=== PATIENT | female | born 1965 | race Caucasian/White ===

== ENCOUNTER 2018-09-04 06:24 | Day surgery (SDC) | payer BC ==
[~2018-09-04] VITALS: Ht 167.6 cm; Wt 59.7 kg
[2018-09-04] VITALS (17 sets, daily range): BP systolic 115–142; BP diastolic 58–67; PULSE 53–91; RESP 13–36; Ht 167.6 cm; Wt 59.7 kg
[~2018-09-04 06:24] MED LIST: CEFAZOLIN 2 GM/50 ML (PMX) 50 ML IVPB SCH; SOD CHLORIDE 0.9% 1,000 ML IV ONE
[2018-09-04] MEDS ORDERED: CEFAZOLIN 1 GM INJ ONE (09:12)
[2018-09-04] MEDS ORDERED: FENTAnyl 50 MCG/ML VIAL ONE (09:12)
[2018-09-04] MEDS ORDERED: LIDOCAINE 2% (SDV) 5 ML INJ ONE (09:12)
[2018-09-04] MEDS ORDERED: PROPOFOL 20 ML ONE (09:12)
[2018-09-04] MEDS ORDERED: MIDAZOLAM 1 MG/ML 2 ML INJ ONE (09:27)
--- NOTE | 2018-09-04 09:31 | PREAC ---
Date/Time of Note Date/Time of Note DATE: 09/04/18 TIME: 09:30 Anesthesia Eval and Record Evaluation Time Pre-Procedure Interview DATE: 09/04/18 TIME: 09:30 Age 53 Sex female NPO: 8 hrs Preoperative diagnosis left breast cancer Planned procedure left needle localized partial mastectomy Past Medical History Past Medical History: None Surgery & Anesthesia Issues No known issue (never had anesthesia) Meds Anticoagulation: No Beta Colleen within 24 hr: No Reason Beta Colleen not given: Pt. not on B-Colleen No Active Prescriptions or Reported Meds Current Medications Cefazolin Sodium/ Dextrose 50 ml @ 100 mls/hr PRE-OP IVPB ; Start 09/04/18 at 06:00; Stop 09/04/18 at 15:00 Sodium Chloride 1,000 ml @ 75 mls/hr [id number] ONCE IV ; Start 09/04/18 at 06:00; Stop 09/04/18 at 19:19 Meds reviewed: Yes Allergies Coded Allergies: No Known Allergy (Unverified , 09/04/18) Allergies Reviewed: Yes Labs/Studies Labs Reviewed: Reviewed by anesthesiologist test: Negative Studies: ECG Pre-procedure Exam Airway: Adequate mouth opening, Adequate thyromental dist Mallampati: Mallampati II Teeth: Normal Lung: Normal Heart: Normal ASA Physical Status ASA physical status: 2 Emergency: None Planned Anesthetic General/MAC: LMA Planned Pain Management Parenteral pain med, Local by surgeon Pre-operative Attestations Prior to commencing anesthesia and surgery, the patient was re-evaluated, there was verification of: *The patient's identity *The results of appropriate recent lab work and preoperative vital signs *The above evaluation not changing prior to induction *Anesthetic plan, risk benefits, alternative and complications discussed with patient/family; questions answered; patient/family understands, accepts and wishes to proceed. JANE STOCK Sep 04, 2018 09:31
[2018-09-04] MEDS ORDERED: MEPERIDINE 25 MG INJ IV PRN (10:00)
[2018-09-04] MEDS ORDERED: OXYCODONE/ACETAMINOPHEN (5/325) TAB PO PRN ×2 (10:00)
[2018-09-04] MEDS ORDERED: HYDROmorphONE 1 MG/5 ML IV SYRINGE IV PRN ×2 (10:00)
[2018-09-04] MEDS ORDERED: ONDANSETRON 4 MG INJ IV PRN (10:00)
[2018-09-04] MEDS ORDERED: ISOSULFAN BLUE 1% 5 ML INJ SC ONE (10:07)
[2018-09-04] MEDS ORDERED: FAMOTIDINE 20 MG INJ ONE (11:11)
[2018-09-04] MEDS ORDERED: ONDANSETRON 4 MG INJ ONE (11:11)
[2018-09-04] MEDS ORDERED: METOCLOPRAMIDE 10 MG INJ ONE (11:11)
[2018-09-04] MEDS ORDERED: DEXAMETHASONE 4 MG/ML 5 ML INJ ONE (11:11)
[2018-09-04] MEDS ORDERED: EPHEDrine 25 MG/5 ML SYG ONE (11:45)
--- NOTE | 2018-09-04 12:17 | SIPON ---
Date/Time of Note Date/Time of Note DATE: 09/04/18 TIME: 12:16 Operative Report Preoperative Diagnosis Invasive cancer left breast Postoperative Diagnosis Same Operation/Procedure Performed Left needle directed partial mastectomy and sentinel lymph node biopsy Surgeon see signature line budget assistant Dr Yang Second assist: ELIO VIGIL MD Anesthesia: general Estimated blood loss: 10 - 50 ml's Transfusion Required none Specimen Left partial mastectomy specimen and sentinel lymph node Grafts/Implants none Complications none SUZANNE SCHILLING MD Sep 04, 2018 12:17
[2018-09-04] MEDS ORDERED: HYDROCODONE/APAP (7.5/325) TAB PO PRN (12:30)
[2018-09-04] MEDS: HYDROmorphONE 1 MG/5 ML IV SYRINGE IV PRN ×2 (12:33→12:46)
--- NOTE | 2018-09-04 12:41 | PAC ---
Date/Time of Note Date/Time of Note DATE: 09/04/18 TIME: 12:40 Post-Anesthesia Notes Post-Anesthesia Note Last documented vital signs POST BP 109/78 HR 76 RR 16 SPO2 100% TEMP 97.5 Vital Signs Date Temp Pulse Resp B/P (MAP) Pulse Ox O2 O2 Flow FiO2 Time Delivery Rate 09/04/18 96.9 53 16 142/63 99 09:30 (89) Activity: WNL Respiratory function: WNL Cardiovascular function: WNL Mental status: Baseline Pain reasonably controlled: Yes Hydration appropriate: Yes Nausea/Vomiting absent: Yes JANE STOCK Sep 04, 2018 12:41
--- NOTE | 2018-09-04 14:16 | OPR ---
DATE OF OPERATION: 09/04/2018 PREOPERATIVE DIAGNOSIS: Invasive cancer, left breast. POSTOPERATIVE DIAGNOSIS: Invasive cancer, left breast. PROCEDURE: Left wire needle-directed partial mastectomy and sentinel lymph node biopsy. ANESTHESIA: General. ANESTHESIOLOGIST: Benjie Walsh CRNA SURGEON: Luc Drummond MD BUSINESS MANAGEMENT ASSOCIATE: Mauricio Yang MD and Dane Logan MD INDICATIONS FOR PROCEDURE: The patient is a 53-year-old female who underwent surveillance mammograph y and was found to have approximately a 4 cm area of suspicious microcalcifications. Biopsy revealed ductal carcinoma in situ. Second biopsy revealed a well-differentiated invasive cancer. The patien t was counseled as to need for surgery. She elected to undergo breast conservation surgery and was s cheduled for a left needle-directed partial mastectomy and sentinel lymph node biopsy after first giv ing consent. DESCRIPTION OF PROCEDURE: On the morning of surgery, the patient presented to [facility] where she underwent localization of the lesion performed by attending radiologist, Dr. Malu Zarco. Subsequently, she was brought to the operating theater, placed under general endotr acheal tube anesthesia. The left breast and axillary region were prepped and draped in usual sterile fashion. Approximately 3 to 4 mL of 1% Lymphazurin blue dye was then injected peritumorally. The b reast was gently massaged for approximately 12 minutes. At this point, a 3 to 4 cm incision was made in the left axillary hairline. Subcutaneous tissue was dissected with cautery down through the clav ipectoral fascia. A dye-stained lymphatic was identified and traced to an obvious sentinel node. Th is node was resected using the LigaSure device. It was sent for intraoperative frozen section analys is which was negative for evidence of malignancy; therefore, no further nodes were taken. The wound was irrigated. Minimal bleeding was controlled with cautery. The skin was then reapproximated with a 4-0 Vicryl suture in subcuticular fashion. Attention was then directed to performing the partial m astectomy. A curvilinear incision was made in the upper outer quadrant of the breast in the region o f previously placed localization wire. Subcutaneous tissue was dissected with cautery. The skin edg es were then elevated and wide circumferential dissection of the tissue associated with the wires too k place down to the pectoralis major fascia. The specimen was then transected directly off of the mu scle with the fascia. It was oriented and sent for radiographic confirmation of capture. Capture wa s confirmed. Specimen was then sent for permanent pathologic analysis. The wound was irrigated. Mi nimal bleeding was controlled with cautery. The skin was then reapproximated with a deep dermal laye r of 4-0 Vicryl sutures in interrupted fashion, followed by final skin approximation with 5-0 PDS sut ures in subcuticular fashion and Dermabond was applied to both wounds. The patient tolerated the pro cedure well. The total blood loss was approximately 20 mL. There were no complications and the susy ent was transported in stable condition to recovery room where circumferential compression dressing w as applied. Dictated By: LUC CANNON/DIEUDONNE Conf#: [id number] DID#: [id number]
== END 2018-09-04 14:15 | disposition home or self-care (01) ==
LOC: SDS 06:24
PROVIDERS: ATTEND Surgery Surgical Oncology
DX: D05.92 Unspecified type of carcinoma in situ of left breast (principal)
CPT/HCPCS: 19301; 38500; 71045; 93005; J0690; J1100; J1170; J2250; J2405; J2765; J3010; Z7610; Q9968